=== PATIENT | female | born 1970 | race Two or more races ===

== ENCOUNTER → 2024-04-19 | Outpatient (CLI) | payer OTHER, SELFPAY ==
--- NOTE | 2024-04-19 15:39 | XR_ITS ---
Examination: Knee bilateral, 6 views Technique: Knee AP, lateral, oblique each knee total 6 views Date and time of exam: April 19, 2024 1551 hours INDICATIONS: Patient fell one week ago with injury to both knees, bilateral knee pain. FINDINGS: No fracture or dislocation involving either knee Moderate osteoarthritis medial and patellofemoral joints right knee No opaque foreign bodies No cortical bone destruction IMPRESSION: No fracture or dislocation involving either knee
--- NOTE | 2024-04-19 15:39 | XR_ITS ---
Examination: Bilateral wrists 6 views TECHNIQUE: AP oblique lateral each wrist total 6 views Exam date and time: April 11, 2024 at 1551 hours INDICATIONS: Bilateral wrist pain after falling one week ago. FINDINGS: Moderate osteopenia Moderate osteoarthritis right first carpometacarpal joint Advanced osteoarthritis left first carpometacarpal joint IMPRESSION: No acute fracture or dislocation involving either wrist
== END | disposition home or self-care (01) ==
PROVIDERS: PCP Nurse Practitioner Family; Referring Provider Family Medicine; Visit Provider Family Medicine
DX: S60.211A Contusion of right wrist, initial encounter (principal); S60.212A Contusion of left wrist, initial encounter; S80.01XA Contusion of right knee, initial encounter; S80.02XA Contusion of left knee, initial encounter; S89.92XA Unspecified injury of left lower leg, initial encounter; S89.91XA Unspecified injury of right lower leg, initial encounter; W19.XXXA Unspecified fall, initial encounter
CPT/HCPCS: 73110; 73562

== ENCOUNTER 2024-10-30 17:12 | Emergency (ER) | payer MEDICAID, SELFPAY ==
[2024-10-30 17:13] VITALS: BMI 30.9
--- NOTE | 2024-10-30 17:16 | EKG_ITS ---
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
[2024-10-30 17:23] VITALS: BP 87/57; PULSE 69; RESP 22; TEMP 36.8; O2SAT 99
[2024-10-30 17:29] VITALS: BP 107/67; PULSE 90; RESP 19; O2SAT 91
--- NOTE | 2024-10-30 17:49 | PD.EDSYNC ---
ED Syncope RME/HPI General Chief Complaint: Syncope / Near Syncope Stated Complaint: PASSED OUT AFTER CUT ARM Time Seen by Provider: 10/30/24 17:40 Arrival date/time: 10/30/24 17:12 RME / HPI RME / HPI narrative: 54 year old female with history of hypertension and diabetes presents to the ED brought in by family for evaluation following a syncopal episode after injury today. Daughter states they were removing a large mirror from the wall when the glass shattered and struck the right forearm, resulting in a laceration. Daughter states patient immediately wrapped the laceration and presented here. No head injury reported. No other injuries reported. Related Data Allergies Allergy/AdvReac Type Severity Reaction Status Date / Time No Known Allergies Allergy Verified 10/30/24 17:15 Review of Systems Review of Systems Systems Reviewed: All systems reviewed, normal except as documented Past Medical History Past Medical History CARDIAC: Positive Hypertension ENDOCRINE: Positive Diabetes Mellitus Type 2 Social History SMOKING STATUS: Never smoker ED Exam Narrative Physical exam: GENERAL APPEARANCE:? alert and oriented x 4, well-developed, well-nourished, appears to be in pain HEENT: normocephalic, atraumatic NECK: supple LUNGS: no respiratory distress, normal effort HEART: good peripheral perfusion EXTREMITIES:? V-shaped irregular laceration with jagged edges measuring 16cm to right forearm, does not appear contaminated NEUROLOGIC: awake; alert and oriented x4 PSYCHIATRIC:? appropriate mood and affect SKIN: warm, dry, normal color; no rashes Course Course Course Narrative: 1800: Patient signed out to Dr. Mancera pending XR, reassessment, and final disposition. Quality Measures none Orders Category Date Time Status EKG (ED ONLY) *Do not use* NOW Care 10/30/24 17:16 Completed Set Up Suture Tray STAT Care 10/30/24 17:29 Active EKG (ED Only) Stat Exams 10/30/24 17:16 Draft Ketorolac Inj [Toradol Inj] Med 10/30/24 17:45 Discontinued 30 mg IVP X1 ONE Ketorolac Inj [Toradol Inj] Med 10/30/24 17:29 Discontinued 60 mg IM X1 ONE Lidocaine 1% W/Epi 1:100K 20Ml [Xylocaine 1% w/Epi 1: Med 10/30/24 17:44 Discontinued 100K 20 ml] 20 ml INFL X1 ONE Lidocaine 1% W/Epi 1:100K 20Ml [Xylocaine 1% w/Epi 1: Med 10/30/24 17:28 Discontinued 100K 20 ml] 30 ml Sodium Bicarb 8.4% 50ml Vial* 1 meq INFL X1 Vital Signs Vital signs: Vital Signs Temperature 98.3 F 10/30/24 17:23 Pulse Rate 69 10/30/24 17:23 Respiratory Rate 22 H 10/30/24 17:23 Blood Pressure 87/57 L 10/30/24 17:23 Pulse Oximetry (%) 99 10/30/24 17:23 Oxygen Delivery Method Room Air 10/30/24 17:23 Pulse ox is 99% on room air which is adequate. PROCEDURES: Laceration Laceration 1: Site: upper extremity Side (If applicable): right Size (cm): 16 Description: irregular (V-shaped with jagged edges ) Depth: involves tendon (There was an injury to the tendon, bone was visible and did not appear broken) Local Anesthetic: lidocaine 1% and with epi Amount of anesthesia used (mL): 5 Pre-repair: wound explored (does not appear contaminated ), irrigated extensively and wound margins revised Skin layer closed with: other (Ethilon ) Suture size (cm): 4-0 Number of sutures: 8 Technique: simple, interrupted Subcutaneous layer closed with: vicryl Size: 4-0 Number of sutures: 5 Technique: simple, interrupted Muscle layer closed with: vicryl Size: 4-0 Number of sutures: 2 Technique: simple, interrupted Syncope MDM Narrative MDM Narrative:: Dione Roland am scribing for and in the presence of Dr. Gutiérerz. Patient data External records reviewed:: None (No previous ED visits for review ) Clinical information provided by:: patient Social determinants that could affect healthcare access:: none Patient has the following chronic illnesses:: HTN and DM How is presenting disease/condition affected by chronic disease/condition?: uneffected by Evaluation data The following diagnostics were reviewed and interpreted by me:: EKG tracing(s) (10/30/2024 @ 17:27. Normal sinus rhythm, rate 82, no STEMI. ) Lab and/or radiology exams considered but not ordered:: None Interpretation Summary: As noted above Medications / Prescriptions Medications or Prescriptions considered but not ordered:: None Medication administrations:: Medication Administration History Discontinued Medications Lidocaine/Epinephrine 30 ml/ (Sodium Bicarbonate 1 meq) 0 ml INFL X1 ONE Stop: 10/30/24 17:29 Last Admin: 10/30/24 17:46 Dose: Not Given Documented By: VL Non-Admin Reason: Discontinued Ketorolac Tromethamine (Ketorolac Inj 60 Mg/2 Ml Vial) 60 mg IM X1 ONE Stop: 10/30/24 17:30 Last Admin: 10/30/24 17:46 Dose: Not Given Documented By: VL Non-Admin Reason: Discontinued Ketorolac Tromethamine (Ketorolac Inj 30 Mg/Ml Vial) 30 mg IVP X1 ONE Stop: 10/30/24 17:46 Last Admin: 10/30/24 17:58 Dose: 30 mg Documented By: VL Lidocaine/Epinephrine (Lidocaine 1% W/Epi 1:100k 20 Ml Vial) 20 ml INFL X1 ONE Stop: 10/30/24 17:45 Last Admin: 10/30/24 18:08 Dose: 20 ml Documented By: VL Comments: administered by Dr. Valle for suture repair See above Consultations Consultation(s) initiated? (list below): No Diagnosis Syncope Differential Diagnosis: syncope due to orthostatic hypotension, vasovagal syncope, dehydration and other (Laceration) Most likely diagnosis given after review of the tests above:: Laceration Vasovagal Syncope Admission Indicated Admission indicated?: not indicated Explain why admission is indicated or not indicated:: Patient signed out pending final disposition Admission Request Was there a request for admission?: No Disposition Plan Disposition Plan: other (specify) (signed out to Dr. Mancera) Discharge Plan Problem List Clinical Impression: Vasovagal syncope, Arm laceration involving tendon Patient/Caregiver Discharge Instructions Print Language: Moldovan
[2024-10-30] MEDS: KETOROLAC INJ 30 MG/ML VIAL IVP (17:58)
[2024-10-30] MEDS: LIDOCAINE 1% W/EPI 1:100K 20 ML VIAL INFL (18:08)
[2024-10-30 18:17] VITALS: BP 118/76; PULSE 88; RESP 19; TEMP 37.1; O2SAT 97
--- NOTE | 2024-10-30 18:24 | XR_ITS ---
Examination: Forearm, right, 2 views. Technique: Forearm, AP, lateral 2 views Date and time of exam: October 30, 2024, 1838 hours INDICATIONS: Patient fell today with injured forearm, forearm pain. FINDINGS: No acute fracture No opaque foreign body On the lateral view the distal ulna is mildly dorsally position, clinical correlation is advised IMPRESSION: No acute fracture On the lateral view the distal ulna is mildly dorsally positioned, clinical correlation advised
[2024-10-30] MEDS: ceFAZolin/D5W 1 GM IVPB 1 GM/50 ML BAG IV (18:38)
--- NOTE | 2024-10-30 18:39 | PD.EDADDENDU ---
Emergency Room Addendum <Susy Hutchins - Last Filed: 10/30/24 19:58> Addendum Narrative: 1800: Care assumed from Dr. Valle, the previous shift emergency physician. Past medical, surgical, social and family history reviewed. Vitals and home medications reviewed. Results and treatment plan discussed. I will assume the care of the patient at this time and will follow the patient. Please refer to the emergency department record for history and examination from initial visit. 54yo female presents after having incurred a laceration to the dorsal aspect of the right dominant forearm, which had been previously explored and repaired by prior MD (see note). Patient is resting comfortably. Clinical examination demonstrates full ability to extend both wrist and fingers, suggesting intact extensor carpi ulnaris. Will place in cock-up splint in an effort to prevent laceration. Distal N/V motor intact post splint. Dx: vasovagal syncope, arm laceration involving tendon. RADIOLOGY RESULTS: [facility] Report Signed Patient: BEATA APPIAH [facility]. Record#: [id number] Birthdate: 1970 Age/Sex: 54 / F Location: [facility] Attending Dr: Ordering Physician: Mila Valle MD Date of Service: 10/30/24 Procedure(s): XR forearm RT 2V Accession Number(s): [id number] cc: Cl Hutchins MD; Francisco Javier Pollock MD; Mila Valle MD~ Examination: Forearm, right, 2 views. Technique: Forearm, AP, lateral 2 views Date and time of exam: October 30, 2024, 1838 hours INDICATIONS: Patient fell today with injured forearm, forearm pain. FINDINGS: No acute fracture No opaque foreign body On the lateral view the distal ulna is mildly dorsally position, clinical correlation is advised IMPRESSION: No acute fracture On the lateral view the distal ulna is mildly dorsally positioned, clinical correlation advised Dictated By: Francisco Javier Pollock MD Signed By: <Electronically signed by Francisco Javier Pollock MD in [place]> 10/30/24 190 <Tadeo Mancera DO - Last Filed: 10/30/24 20:19> Addendum Narrative: 1800: Care assumed from Dr. Valle, the previous shift emergency physician. Past medical, surgical, social and family history reviewed. Vitals and home medications reviewed. Results and treatment plan discussed. I will assume the care of the patient at this time and will follow the patient. Please refer to the emergency department record for history and examination from initial visit. 54yo female presents after having incurred a laceration to the dorsal aspect of the right dominant forearm, which had been previously explored and repaired by prior MD (see note). Patient is resting comfortably. Clinical examination demonstrates full ability to extend both wrist and fingers, suggesting intact wrist and digit extensors. Will add outpatient antibiotics/narcotic analgesic and place in cock-up splint in an effort to prevent further injury . Distal N/V motor intact post splint. Dx: vasovagal syncope, arm laceration involving tendon. RADIOLOGY RESULTS: [facility] Report Signed Patient: BEATA APPIAH. Record#: [id number] Birthdate: 1970 Age/Sex: 54 / F Location: [facility] Attending Dr: Ordering Physician: Mila Valle MD Date of Service: 10/30/24 Procedure(s): XR forearm RT 2V Accession Number(s): [id number] cc: Cl Hutchins MD; Francisco Javier Pollock MD; Mila Valle MD~ Examination: Forearm, right, 2 views. Technique: Forearm, AP, lateral 2 views Date and time of exam: October 30, 2024, 1838 hours INDICATIONS: Patient fell today with injured forearm, forearm pain. FINDINGS: No acute fracture No opaque foreign body On the lateral view the distal ulna is mildly dorsally position, clinical correlation is advised IMPRESSION: No acute fracture On the lateral view the distal ulna is mildly dorsally positioned, clinical correlation advised Dictated By: Francisco Javier Pollock MD Signed By: <Electronically signed by Francisco Javier Pollock MD in [place]> 10/30/24 [id number]
[2024-10-30] MEDS: TETANUS,DIPHTHERIA TOXOIDS/PF (ADULT) 0.5 ML SYRINGE IMi (18:43)
[2024-10-30] MEDS: BACITRACIN OINT 1 GM PACKET TOP (18:59)
[2024-10-30 20:05] VITALS: BP 137/82; PULSE 87; RESP 24; TEMP 36.7; O2SAT 96
== END 2024-10-30 20:09 | disposition home or self-care (01) ==
PROVIDERS: Emergency Provider Emergency Medicine; PCP Family Medicine
DX: S56.921A Laceration of unspecified muscles, fascia and tendons at forearm level, right arm, initial encounter (principal); R55 Syncope and collapse; Z23 Encounter for immunization; I10 Essential (primary) hypertension; E11.9 Type 2 diabetes mellitus without complications; S51.811A Laceration without foreign body of right forearm, initial encounter; W25.XXXA Contact with sharp glass, initial encounter
CPT/HCPCS: 12005; 73090; 90471; 90714; 93005; 96365; 96375; J0689; J1885; J3490; A9270